=== PATIENT | female | born 2000 | race African-American/Black ===

== ENCOUNTER 2025-09-04 10:50 | Emergency (ER) | payer OTHER ==
[~2025-09-04] VITALS: Ht 162.6 cm; Wt 84.0 kg
[2025-09-04 11:25] VITALS: PULSE 84; RESP 22; O2SAT 96
[2025-09-04] MEDS: IPRATROPIUM BROMIDE (0.02%) 0.5MG/2.5ML NEB HHN SCH (11:25)
[2025-09-04] MEDS: ALBUTEROL (0.083%) 2.5MG/3ML NEB HHN SCH (11:25)
[2025-09-04] MEDS: DEXAMETHASONE 4MG TABLET PO ONE (11:32)
[2025-09-04 13:57] VITALS: PULSE 88; RESP 22; O2SAT 96
[2025-09-04] MEDS: IPRATROPIUM/ALBUTEROL 0.5-3(2.5)MG/3ML NEB HHN ONE (13:57)
[2025-09-04 14:32] VITALS: BP 151/77; PULSE 108; RESP 18; TEMP 36.8; O2SAT 99
[2025-09-04] MEDS ORDERED: ALBU18HF2 IH (14:43)
== END 2025-09-04 14:51 | disposition home or self-care (01) ==
LOC: ER 11:04
DX: J45.901 Unspecified asthma with (acute) exacerbation (principal)
CPT/HCPCS: 81025; 94644; 99285; J8540; Z7610 ×2; 94070; 94640; 94664